=== PATIENT | female | born 1960 | race Caucasian/White ===

== ENCOUNTER 2018-08-31 11:05 | Outpatient (CLI) | payer OTHER | END 2018-08-31 11:15 | disposition home or self-care (01) | LOC: SONOGRAMA 11:05 → MAMO-SONO 11:15 → SONOGRAMA 11:15 | DX: N84.0 Polyp of corpus uteri (principal) ==

== ENCOUNTER 2020-04-25 08:54 | Outpatient (CLI) | payer OTHER | END 2020-04-25 09:07 | disposition home or self-care (01) | LOC: SONOGRAMA 08:54 → MAMO-SONO 09:30 | PROVIDERS: ATTEND Obstetrics & Gynecology Gynecology | DX: N84.0 Polyp of corpus uteri (principal) ==